=== PATIENT | female | born 1955 | race Caucasian/White ===

== ENCOUNTER 2024-06-17 08:39 | Day surgery (SDC) | payer MEDICARE, OTHER ==
[2024-06-17] MEDS: Lactated Ringers 1,000 ML IV SCH (09:05)
[2024-06-17] MEDS ORDERED: Propofol 200 MG/20 ML SDV ONE ×2 (09:13→10:51)
[2024-06-17] MEDS ORDERED: fentaNYL 100 MCG/2 ML SDV ONE (09:13)
== END 2024-06-17 12:05 | disposition home or self-care (01) ==
LOC: VM.SDS 08:39
PROVIDERS: ATTEND Student in an Organized Health Care Education/Training Program
DX: Z12.11 Encounter for screening for malignant neoplasm of colon (principal)
CPT/HCPCS: G0121; J2704; J3010; J7120